=== PATIENT | male | born 1980 | race African-American/Black ===

== ENCOUNTER 2022-03-08 22:45 | Emergency (ER) | payer SELFPAY ==
[2022-03-08] MEDS ORDERED: Ondansetron PF 4 MG/2 ML Vial ONE (22:57)
[2022-03-08] MEDS ORDERED: Ondansetron ODT 4 MG TAB ONE (22:59)
== END 2022-03-09 00:53 | disposition home or self-care (01) ==
LOC: ERS 22:45
DX: K29.00 Acute gastritis without bleeding (principal)
CPT/HCPCS: 99283; J2405; Q0162

== ENCOUNTER 2022-03-29 11:57 | Emergency (ER) | payer SELFPAY | END 2022-03-29 14:37 | disposition home or self-care (01) | LOC: ERS 11:57 | DX: J02.0 Streptococcal pharyngitis (principal) | CPT/HCPCS: 87430; 99283 ==

== ENCOUNTER 2024-02-12 22:07 | Emergency (ER) | payer SELFPAY ==
[2024-02-12 23:11] LABS: Influenza A by NAA Not Detected (NotDetected); Influenza B by NAA Not Detected (NotDetected); SARS-CoV-2 NAA Rapid Test Not Detected (NotDetected)
[2024-02-12] MEDS ORDERED: Ketorolac Tromethamine 30 MG (1 mL) VIAL ONE (23:52)
[2024-02-12] MEDS ORDERED: Dexamethasone 10 MG/ML VIAL ONE (23:53)
== END 2024-02-13 00:28 | disposition home or self-care (01) ==
LOC: ERS 22:07
DX: J02.0 Streptococcal pharyngitis (principal)
CPT/HCPCS: 87430; 96372; 99283; J1100; J1885

== ENCOUNTER 2024-06-30 20:44 | Emergency (ER) | payer SELFPAY ==
[2024-06-30 22:21] LABS: Influenza A by NAA Not Detected (NotDetected); Influenza B by NAA Not Detected (NotDetected); SARS-CoV-2 NAA Rapid Test Not Detected (NotDetected)
== END 2024-06-30 20:53 | disposition home or self-care (01) ==
LOC: ERS 20:44
DX: J06.9 Acute upper respiratory infection, unspecified (principal); J02.9 Acute pharyngitis, unspecified
CPT/HCPCS: 87081; 87430; 99283